=== PATIENT | female | born 2000 | race Caucasian/White ===

== ENCOUNTER → 2018-09-05 21:38 | Emergency (ER) | payer BC ==
[2018-09-05 21:48] VITALS: BP 119/89
--- OUTSIDE RECORDS SUMMARY | 2018-09-05 21:55 | XMS REPORT | Continuity of Care Document ---
:2000 External Reference #:[id number] Author Name Suzan Hernandez C.P.N.PJoseph Address [address] [facility] [place] [address] Care Team Providers Name Role Phone Suzan HernandezP.N.PJoseph Primary Care Physician Unavailable Payers Date Identification Numbers Payment Provider Subscriber Policy Number: [id number] BC/BS Of JOSSIE Cordell Shi PayID: [id number] [address] [address] [place] [address] Problems Active Problems Provider Date Abnormal glucose level Kyle ClaytonP.N.P. Onset: 09/02/2018 Autoimmune thyroiditis Suzan Hernandez C.P.N.PJoseph Onset: 09/02/2018 Family History Date Family Member(s) Observation Comments Father psoriasis Father Asthma Mother Migraine Mother Seasonal Allergies Mother ADHD First Brother Asthma First Brother ADHD Paternal Grandfather Hypothyroidism Paternal Grandfather Seasonal Allergies Paternal Grandmother BRCa - 1 breast cancer Paternal Grandmother Hypercholesterolemia Paternal Grandmother Mental Illness Maternal Grandfather Hypothyroidism Maternal Grandfather Seasonal Allergies Maternal Grandmother psoriasis Maternal Grandmother Seasonal Allergies Maternal Grandmother Cancer Maternal Grandmother Hypercholesterolemia Social History Type Date Description Comments Sex Unknown Lives With Mother And Father Lives With Younger Brother Smoke-Free Home is smoke-free Pets 2 dogs Pets 1 cat Tobacco Use Start: Unknown Patient has never smoked Guns in Home No Allergies, Adverse Reactions, Alerts Description No Known Drug Allergies Medications Active Medications SIG Qnty Indications Ordering Provider Date Escitalopram Oxalate 1 by mouth 30tabs F41.9 Suzan Hernandez, 09/27/2017 20mg every day C.P.N.P. Tablets Mirena (52 MG) Unknown 20mcg/24HR IUD History Medications Lexapro 1 by mouth every day 30tabs F41.9 Suzan Hernandez, 02/02/2017 - 10mg Tablets C.P.N.P. 09/27/2017 Lexapro 1 by mouth every day 60tabs Suzan Hernandez, 10/14/2016 - 5mg Tablets C.P.N.P. 02/02/2017 Selenium 1 by mouth every day 30tabs E06.3 Suzan Hernandez, 10/14/2016 - 200mcg C.P.N.P. 09/02/2018 Tablets Adrenal Stress Calm adrenotone - Designs E06.3 Suzan Hernandez, 2016 - for health C.P.N.P. 09/02/2018 Tablets [place] 3 500 1000 mg per day E06.3 Suzan Hernandez, 10/14/2016 - 500mg C.P.N.P. 09/02/2018 Capsules Turmeric 1 by mouth twice a Suzan Hernandez, 10/14/2016 - 500mg day on empty stomach C.P.N.P. 08/02/2017 Capsules (95% standardized extract) Amoxicillin 2 by mouth twice a 40caps R35.0 Suzan Hernandez, 05/01/2016 - 500mg day x 10 days C.P.N.P. 05/11/2016 Capsules Ferrous Bisglycinate 60 MG Per Day D53.9 Suzan Hernandez, 04/10/2016 - Chelate C.P.N.P. 09/02/2018 Powder Vitamin D3 Maximum 1 by mouth every day 90caps E55.9 Suzan Hernandez, 12/16 - Strength C.P.N.P. 09/02/2018 5000Unit Capsules Vitamin B Complex 1 by mouth every day 30tabs F41.9 Suzan Hernandez, 2015 - (100) C.P.N.P. 09/02/2018 Tablets No Active Suzan Hernandez, 05/31/2015 - Medications C.P.N.P. 12/17/2015 Immunizations CPT Code Status Date Vaccine Lot # [id number] Given 06/03/2016 HPV 9 Gardasil 9 [id number] 12566 Given 04/10/2016 HPV 9 Gardasil 9 [id number] 08473 Given 05/05/2014 Hepatitis A Vaccine Pediatric/Adolescent 2 Dose Schedule 31277 Given 06/21/2013 Hepatitis B Imm Age 0 to 19yr 62156 Given 04/20/2013 MMR Virus Immunization 95591 Given 03/23/2013 MMR Virus Immunization 70928 Given 02/23/2013 Hepatitis B Imm Age 0 to 19yr 01059 Given 12/22/2012 Hib/Hep B Combination Vaccine 36355 Given 12/02/2012 Poliomyelitis Immunization 95955 Given 10/27/2012 Poliomyelitis Immunization 09765 Given 12/04/2009 TdaP Immunization Age 7+ 16289 Given 04/15/2006 DTaP Immunization under age 7 39138 Given 1998 DTaP Immunization under age 7 86971 Given 1998 Hib Vaccine 73686 Given 1998 Poliomyelitis Immunization 03023 Given 1998 DTaP Immunization under age 7 26249 Given 1998 Hib Vaccine 57527 Given 1998 Poliomyelitis Immunization 37110 Given 1998 DTaP Immunization under age 7 34281 Given 1998 Hib Vaccine 05193 Refused 05/31/2015 HPV 4 Gardasil 4 Vital Signs Date Vital Result Comment 09/02/2018 8:38am Height 65.75 inches 5'5.75" Weight 147.50 lb Weight 66.906 kg Heart Rate 89 /min BP Systolic 119 mmHg BP Diastolic 71 mmHg BMI (Body Mass Index) 24.0 kg/m2 Right ear audiology results 20 db Left ear audiology results 20 db Left Visual Acuity Distance 20/20 Right Visual Acuity Distance 20/20 07/30/2017 9:15am Weight 143.50 lb Weight 65.092 kg Weight Percentile 75th Body Temperature 97.2 F 05/19/2017 9:25am Height 65 inches 5'5" Height Percentile 61 % Weight 137.12 lb Weight 62.200 kg Weight Percentile 68th Body Temperature 97.4 F Heart Rate 92 /min BP Systolic 105 mmHg BP Diastolic 68 mmHg Blood Pressure Percentile 28 % BMI (Body Mass Index) 22.8 kg/m2 Body Mass Index Percentile 64 % 02/02/2017 12:16pm Height 65.50 inches 5'5.50" Height Percentile 69 % Weight 133.50 lb Weight 60.556 kg Weight Percentile 64th Heart Rate 72 /min BP Systolic 102 mmHg BP Diastolic 62 mmHg Blood Pressure Percentile 17 % BMI (Body Mass Index) 21.9 kg/m2 Body Mass Index Percentile 55 % 10/14/2016 11:46am Height 65.25 inches 5'5.25" Height Percentile 65 % Weight 127.31 lb Weight 57.749 kg Weight Percentile 55th Heart Rate 102 /min BP Systolic 112 mmHg BP Diastolic 64 mmHg Blood Pressure Percentile 50 % BMI (Body Mass Index) 21.0 kg/m2 Body Mass Index Percentile 46 % 06/03/2016 9:02am Height 65.5 inches 5'5.50" Height Percentile 69 % Weight 128.81 lb Weight 58.429 kg Weight Percentile 59th Heart Rate 78 /min BP Systolic 98 mmHg manual BP Diastolic 64 mmHg manual Blood Pressure Percentile 8 % BMI (Body Mass Index) 21.1 kg/m2 Body Mass Index Percentile 48 % Right ear audiology results 20 db Left ear audiology results 20 db Left Visual Acuity Distance 20/20 Right Visual Acuity Distance 20/20 05/01/2016 4:36pm Weight 126.00 lb w/clothes/no shoes Weight 57.154 kg Weight Percentile 55th Body Temperature 98.2 F Heart Rate 110 /min BP Systolic 111 mmHg BP Diastolic 70 mmHg Blood Pressure Percentile 0 % 04/10/2016 9:02am Weight 125.25 lb Weight 56.813 kg Weight Percentile 53rd Heart Rate 102 /min BP Systolic 113 mmHg BP Diastolic 76 mmHg Blood Pressure Percentile 0 % 01/14/2016 9:14am Weight 125.12 lb Weight 56.757 kg Weight Percentile 54th Heart Rate 86 /min BP Systolic 117 mmHg BP Diastolic 55 mmHg Blood Pressure Percentile 0 % 12/17/2015 9:30am Weight 127.25 lb Weight 57.721 kg Weight Percentile 59th Heart Rate 80 /min BP Systolic 114 mmHg BP Diastolic 66 mmHg Blood Pressure Percentile 0 % 05/31/2015 9:08am Height 65.5 inches 5'5.50" Height Percentile 70 % Weight 128.00 lb Weight 58.061 kg Weight Percentile 62nd Heart Rate 68 /min BP Systolic 100 mmHg BP Diastolic 57 mmHg Blood Pressure Percentile 10 % BMI (Body Mass Index) 21.0 kg/m2 Body Mass Index Percentile 51 % Right ear audiology results 20 db Left ear audiology results 20 db Left Visual Acuity Distance 20/20 -2 Right Visual Acuity Distance 20/20 -2 Results Test Date Facility Test Result H/L Range Note Comp Metabolic Panel 09/02/2018 [facility] Sodium 136 mmol/L N 135-[address] [place] [address] [phone] Potassium 4.0 mmol/L N 3.5-5.0 Chloride 103 mmol/L N 101-111 Co2 Carbon Dioxide 25 mmol/L N 22-32 Anion Gap 8 mmol/L N 2-11 Glucose 287 mg/dL High 70-100 Blood Urea Nitrogen 14 mg/dL N 6-24 Creatinine 0.97 mg/dL High 0.51-0.95 BUN/Creatinine Ratio 14.4 N 8-20 Calcium 9.6 mg/dL N 8.6-10.3 Total Protein 7.2 g/dL N 6.4-8.9 Albumin 4.6 g/dL N 3.2-5.2 Globulin 2.6 g/dL N 2-4 Albumin/Globulin Ratio 1.8 N 1-3 Total Bilirubin 1.00 mg/dL N 0.2-1.0 Alkaline Phosphatase 95 U/L N 34-104 Alt 28 U/L N 7-52 Ast 21 U/L N 13-39 Egfr Non- 73.2 >60 Egfr 88.6 >60 1 CBC Auto Diff 09/02/2018 [facility] White Blood 8.3 10^3/uL N 3.5-10.[address] [place] [address] [phone] Red Blood Count 6.12 10^6/uL High 3.70-4.87 Hemoglobin 12.3 g/dL N 12.0-16.0 Hematocrit 39 % N 35-47 Mean Corpuscular Volume 63 fL Low 80-97 2 Mean Corpuscular Hemoglobin 20 pg Low 27-31 Mean Corpuscular HGB Conc 32 g/dL N 31-36 Red Cell Distribution Width 15 % N 10-15 Platelet Count 327 10^3/uL N 150-450 Mean Platelet Volume 7.3 fL Low 7.4-10.4 Abs Neutrophils 5.4 10^3/uL N 1.5-7.7 Abs Lymphocytes 2.2 10^3/uL N 1.0-4.8 Abs Monocytes 0.5 10^3/uL N 0-0.8 Abs Eosinophils 0.2 10^3/uL N 0-0.6 Abs Basophils 0.1 10^3/uL N 0-0.2 Abs Nucleated RBC 0.0 10^3/uL Granulocyte % 64.8 % Lymphocyte % 26.8 % Monocyte % 5.5 % Eosinophil % 2.2 % Basophil % 0.7 % Nucleated Red Blood Cells % 0.2 Laboratory test 09/02/2018 [facility] Hemoglobin A1c 7.4 % High 4.0-5.6 [address] (Glyco HGB) [place] [address] [phone] CRP High Sensitivity 1.30 mg/L <2.00 4 Cell Morphology 09/02/2018 [facility] Microcytosis 3+ [address] [place] [address] [phone] Hypochromasia 1+ Elliptocyte 1+ CBC Auto Diff 05/19/2017 [facility] White Blood 8.1 10^3/uL N 3.5-10.[address] [place] [address] [phone] Red Blood Count 5.82 10^6/uL High 4.0-5.4 Hemoglobin 11.9 g/dL Low 12.0-16.0 Hematocrit 38 % N 35-47 Mean Corpuscular Volume 65 fL Low 80-97 5 Mean Corpuscular Hemoglobin 20 pg Low 27-31 Mean Corpuscular HGB Conc 32 g/dL N 31-36 Red Cell Distribution Width 16 % High 10.5-15 Platelet Count 344 10^3/uL N 150-450 Mean Platelet Volume 7.1 um3 Low 7.4-10.4 Abs Neutrophils 4.6 10^3/uL N 1.5-7.7 Abs Lymphocytes 2.6 10^3/uL N 1.0-4.8 Abs Monocytes 0.5 10^3/uL N 0-0.8 Abs Eosinophils 0.3 10^3/uL N 0-0.6 Abs Basophils 0.1 10^3/uL N 0-0.2 Abs Nucleated RBC 0 10^3/uL Granulocyte % 57.0 % N 38-83 Lymphocyte % 31.9 % N 25-47 Monocyte % 6.5 % N 0-7 Eosinophil % 3.7 % N 0-6 Basophil % 0.9 % N 0-2 Nucleated Red Blood Cells % 0.1 Comp Metabolic Panel 05/19/2017 [facility] Sodium 138 mmol/L Low 139-[address] [place] [address] [phone] Potassium 4.0 mmol/L N 3.5-5.0 Chloride 104 mmol/L N 101-111 Co2 Carbon Dioxide 27 mmol/L N 22-32 Anion Gap 7 mmol/L N 2-11 Glucose 82 mg/dL N 70-100 Blood Urea Nitrogen 20 mg/dL N 6-24 Creatinine 0.83 mg/dL N 0.51-0.95 BUN/Creatinine Ratio 24.1 High 8-20 Calcium 9.1 mg/dL N 8.6-10.3 Total Protein 7.3 g/dL N 6.4-8.9 Albumin 4.6 g/dL N 3.2-5.2 Globulin 2.7 g/dL N 2-4 Albumin/Globulin Ratio 1.7 N 1-3 Total Bilirubin 0.50 mg/dL N 0.2-1.0 Alkaline Phosphatase 72 U/L N 34-104 Alt 13 U/L N 7-52 Ast 18 U/L N 13-39 Egfr Non- 89.5 >60 Egfr 115.1 >60 6 Laboratory test 05/19/2017 [facility] Thyroperoxidase AB 631.06 High <[address] IU/[place] [address] [phone] TSH (Thyroid Stim Horm) 3.03 mcIU/mL N 0.34-5.60 T3 Free 3.70 pg/mL N 2.5-3.9 Free T4 (Free Thyroxine) 0.81 ng/dL N 0.61-1.12 Ferritin 22.1 ng/mL N 11-307 Thyroglobulin AB 16 IU/mL Abnormal <4.0 7 Vitamin B6 05/19/2017 [facility] Pyridoxal 5-Phosphate 12 g/L 5-[address] [place] [address] [phone] Pyridoxic Acid 2 g/L Abnormal 3-30 9 Laboratory test 05/19/2017 [facility] Vitamin D 16.9 ng/mL Low 20-50 finding [address] Total 25(Oh) [place] [address] [phone] Vitamin B12 344 pg/mL N 180-914 10 Laboratory 01/20/2017 [facility] Thyroglobulin AB 10 IU/mL Abnormal <4.0 11 test finding [address] [place] [address] [phone] Laboratory 01/20/2017 [facility] Vitamin D Total 24.5 N 20-[address] 25(Oh) ng/[place] [address] [phone] TSH (Thyroid Stim Horm) 1.83 mcIU/mL N 0.34-5.60 Free T4 (Free Thyroxine) 0.79 ng/dL N 0.61-1.12 T3 Free 3.50 pg/mL N 2.5-3.9 Thyroperoxidase AB 568.04 IU/mL High <9 Iron & Iron Binding 01/20/2017 [facility] Iron 97 g/dL N 50- 212 [address] [place] [address] [phone] Unsaturated Iron Binding 257 g/dL Total Iron Binding Capacity 354 g/dL N 250-450 % Iron Saturation 27 % N 15-55 Laboratory test 01/20/2017 [facility] Ferritin 25.5 ng/mL N 11 -307 [address] [place] [address] [phone] CBC Auto Diff 01/20/2017 [facility] White Blood 7.9 10^3/uL N 3.5-10.8 [address] [place] [address] [phone] Red Blood Count 5.82 10^6/uL High 4.0-5.4 Hemoglobin 11.8 g/dL Low 12.0-16.0 Hematocrit 38 % N 35-47 Mean Corpuscular Volume 65 fL Low 80-97 12 Mean Corpuscular Hemoglobin 20 pg Low 27-31 Mean Corpuscular HGB Conc 31 g/dL N 31-36 Red Cell Distribution Width 15 % N 10.5-15 Platelet Count 339 10^3/uL N 150-450 Mean Platelet Volume 8 um3 N 7.4-10.4 Abs Neutrophils 4.5 10^3/uL N 1.5-7.7 Abs Lymphocytes 2.6 10^3/uL N 1.0-4.8 Abs Monocytes 0.6 10^3/uL N 0-0.8 Abs Eosinophils 0.2 10^3/uL N 0-0.6 Abs Basophils 0.1 10^3/uL N 0-0.2 Abs Nucleated RBC 0.01 10^3/uL Granulocyte % 57.3 % N 38-83 Lymphocyte % 32.4 % N 25-47 Monocyte % 7.2 % N 1-9 Eosinophil % 2.2 % N 0-6 Basophil % 0.9 % N 0-2 Nucleated Red Blood Cells % 0.1 CBC Auto Diff 09/03/2016 [facility] White Blood 9.6 10^3/uL N 3.5-10.[address] Count [place] [id number] [phone] Red Blood Count 5.88 10^6/uL High 4.0-5.4 Hemoglobin 12.2 g/dL N 12.0-16.0 Hematocrit 38 % N 35-47 Mean Corpuscular Volume 65 fL Low 80-97 13 Mean Corpuscular Hemoglobin 21 pg Low 27-31 Mean Corpuscular HGB Conc 32 g/dL N 31-36 Red Cell Distribution Width 16 % High 10.5-15 Platelet Count 327 10^3/uL N 150-450 Mean Platelet Volume 7 um3 Low 7.4-10.4 Abs Neutrophils 5.9 10^3/uL N 1.5-7.7 Abs Lymphocytes 2.8 10^3/uL N 1.0-4.8 Abs Monocytes 0.7 10^3/uL N 0-0.8 Abs Eosinophils 0.1 10^3/uL N 0-0.6 Abs Basophils 0 10^3/uL N 0-0.2 Abs Nucleated RBC 0.01 10^3/uL N Granulocyte % 62.0 % N 38-83 Lymphocyte % 29.0 % N 25-47 Monocyte % 7.0 % N 1-9 Eosinophil % 1.5 % N 0-6 Basophil % 0.5 % N 0-2 Nucleated Red Blood Cells % 0.1 N Laboratory test 09/03/2016 [facility] Ferritin 18.9 ng/mL N 11 -[address] [place] [address] [phone] Iron & Iron Binding 09/03/2016 [facility] Iron 124 g/dL N 50 -[address] [place] [address] [phone] Unsaturated Iron Binding 234 g/dL N Total Iron Binding Capacity 358 g/dL N 250-450 % Iron Saturation 35 % N 15-55 Laboratory test 09/03/2016 [facility] Vitamin D Total 26.4 ng/ mL Low 30-[address] 25(Oh) [place] [address] [phone] Vitamin B6 09/03/2016 [facility] Pyridoxal 9 g/L N 5-50 14 5-[place] [address] [phone] Pyridoxic Acid 3 g/L N 3-30 15 Laboratory test 09/03/2016 [facility] TSH (Thyroid 1.37 mcIU/mL N 0.34-5.60 finding [address] Stim Horm) [place] [address] [phone] Free T4 (Free Thyroxine) 0.86 ng/dL N 0.61-1.12 T3 Free 3.70 pg/mL N 2.5-3.9 Thyroperoxidase AB 417.23 IU/mL High <9 Lyme Western 09/03/2016 [facility] Lyme Disease Negative N Negative [place] [address] [phone] Lyme Disease IgG Bands Present No bands detecte <SEE NOTE> kDa N 16 Lyme Disease IgM Ab WB Negative N Negative Lyme Disease IgM Bands Present No bands detecte <SEE NOTE> kDa N 17 Lyme Disease Interpretation See Comment N 18 Laboratory 09/03/2016 [facility] Thyroglobulin AB 6.3 IU/mL Abnormal <4.[address] [place] [address] [phone] Laboratory 05/19/2016 [facility] House [facility] .Urine Culture <100k test finding (607)- - In House negative Laboratory 05/01/2016 [facility] .Urine Culture >100k col, test finding (607)- - In House pos Laboratory 05/01/2016 [facility] Urine Culture SEE RESULT 20 test finding [address] [place] [address] Sensitivities [phone] Vitamin B6 03/13/2016 [facility] Pyridoxal 11 g/L N 5-[address] 5[place] [address] [phone] Pyridoxic Acid 3 g/L N 3-30 22 Laboratory test 03/13/2016 [facility] Vitamin D 26.4 ng/mL Low 30-[address] Total 25(Oh) [place], [place] [id number] [phone] CBC Auto Diff 03/13/2016 [facility] White Blood 11.8 High 3.5- 10.[address] Count 10^3/[place] [address] [phone] Red Blood Count 6.01 10^6/uL High 4.0-5.4 Hemoglobin 12.0 g/dL N 12.0-16.0 Hematocrit 38 % N 35-47 Mean Corpuscular Volume 63 fL Low 80-97 Mean Corpuscular Hemoglobin 20 pg Low 27-31 Mean Corpuscular HGB Conc 31 g/dL N 31-36 Red Cell Distribution Width 15 % N 10.5-15 Platelet Count 324 10^3/uL N 150-450 Mean Platelet Volume 8 um3 N 7.4-10.4 Abs Neutrophils 7.2 10^3/uL N 1.5-7.7 Abs Lymphocytes 3.4 10^3/uL N 1.0-4.8 Abs Monocytes 0.9 10^3/uL High 0-0.8 Abs Eosinophils 0.2 10^3/uL N 0-0.6 Abs Basophils 0.1 10^3/uL N 0-0.2 Abs Nucleated RBC 0.01 10^3/uL N Granulocyte % 60.7 % N 38-83 Lymphocyte % 29.2 % N 25-47 Monocyte % 7.9 % N 1-9 Eosinophil % 1.7 % N 0-6 Basophil % 0.5 % N 0-2 Nucleated Red Blood Cells % 0.1 N Iron & Iron Binding 03/13/2016 [facility] Iron 141 g/dL N 50 -[address] [place] [address] [phone] Unsaturated Iron Binding 202 g/dL N Total Iron Binding Capacity 343 g/dL N 250-450 % Iron Saturation 41 % N 15-55 Laboratory test 03/13/2016 [facility] Ferritin 14.5 ng/mL N 11 -[address] [place] [address] [phone] Laboratory test 11/25/2015 [facility] Reference Lab See Comment N [address] [place] [address] [phone] Hemoglobin 11/25/2015 [facility] Hemoglobin A2 See Comment N Electropheresis [address] [place] [address] [phone] Hemoglobin F See Comment N Hemoglobin A See Comment N Variant Hemoglobin See Comment N Hemoglobin Variant 2 See Comment N Hemoglobin Variant 3 See Comment N Hemoglobin Electro Interp TNP N () 24 Laboratory test 11/25/2015 [facility] Reference Lab See Comment N [address] [place] [address] [phone] Hemoglobin 11/25/2015 [facility] Hemoglobin TNP N () [address] [place] [address] Interp [phone] Laboratory test 11/25/2015 [facility] Lyme Disease Negative N Negative [address] [place] [address] [phone] CBC Auto Diff 11/12/2015 [facility] White Blood 9.4 10^3/uL N 3.5-10.[address] Count [place], [place] [address] [phone] Red Blood Count 5.70 10^6/uL High 4.0-5.4 Hemoglobin 11.5 g/dL Low 12.0-16.0 Hematocrit 36 % N 35-47 Mean Corpuscular Volume 64 fL Low 80-97 28 Mean Corpuscular Hemoglobin 20 pg Low 27-31 Mean Corpuscular HGB Conc 32 g/dL N 31-36 Red Cell Distribution Width 15 % N 10.5-15 Platelet Count 350 10^3/uL N 150-450 Mean Platelet Volume 7 um3 Low 7.4-10.4 Abs Neutrophils 5.7 10^3/uL N 1.5-7.7 Abs Lymphocytes 2.9 10^3/uL N 1.0-4.8 Abs Monocytes 0.6 10^3/uL N 0-0.8 Abs Eosinophils 0.1 10^3/uL N 0-0.6 Abs Basophils 0.1 10^3/uL N 0-0.2 Abs Nucleated RBC 0.01 10^3/uL N Granulocyte % 61.1 % N 38-83 Lymphocyte % 31.0 % N 25-47 Monocyte % 6.0 % N 1-9 Eosinophil % 1.2 % N 0-6 Basophil % 0.7 % N 0-2 Nucleated Red Blood Cells % 0.1 N Comp Metabolic Panel 11/12/2015 [facility] Sodium 137 mmol/L N 133-[address] [place] [address] [phone] Potassium 4.2 mmol/L N 3.5-5.0 Chloride 103 mmol/L N 101-111 Co2 Carbon Dioxide 26 mmol/L N 22-32 Anion Gap 8 mmol/L N 2-11 Glucose 76 mg/dL N 70-100 Blood Urea Nitrogen 22 mg/dL N 6-24 Creatinine 0.84 mg/dL N 0.51-0.95 BUN/Creatinine Ratio 26.2 High 8-20 Calcium 9.6 mg/dL N 8.6-10.3 Total Protein 7.7 g/dL N 6.4-8.9 Albumin 4.7 g/dL N 3.2-5.2 Globulin 3.0 g/dL N 2-4 Albumin/Globulin Ratio 1.6 N 1-3 Total Bilirubin 0.60 mg/dL N 0.2-1.0 Alkaline Phosphatase 79 U/L N 34-104 Alt 11 U/L N 7-52 Ast 23 U/L N 13-39 Laboratory test 11/12/2015 [facility] Ferritin 18.5 ng/mL N 11 -[address] [place] [address] [phone] Lipid Profile 11/12/2015 [facility] Triglycerides 78 mg/dL N 29 (Trig/Chol/HDL) [address] [place] [address] [phone] Cholesterol 160 mg/dL N 30 HDL Cholesterol 66.6 mg/dL N 31 LDL Cholesterol 78 mg/dL N 32 Laboratory test 11/12/2015 [facility] RBC Magnesium 3.8 mg/dL N 3.5-7.1 [address] [place] [address] [phone] TSH (Thyroid Stim Horm) 1.60 mcIU/mL N 0.34-5.60 Vitamin B12 577 pg/mL N 180-914 34 Vitamin B6 11/12/2015 [facility] Pyridoxal 5-Phosphate 15 g/L N 5-[address] [place] [address] [phone] Pyridoxic Acid 5 g/L N 3-30 36 Laboratory test 11/12/2015 [facility] Vitamin D 24.3 ng/mL Low 30-50 finding [address] [facility] Total 25(Oh) [place] [address] [phone] Zinc Serum 0.74 g/mL N 0.66-1.10 37 CRP High Sensitivity 0.49 mg/L N 38 Arthritis Panel 11/12/2015 [facility] Uric Acid 3.6 mg/dL N 2.3-6.6 [address] [place] [address] [phone] Erythrocyte Sed Rate 10 mm/Hr N 0-14 Rheumatoid Factor <15 IU/mL N <15 39 Anti-Nuclear Antibody 0.2 U N 40 Cyclic Citrullinated Peptide <15.6 U N 41 Interpretation See Comment N 42 Laboratory test 11/12/2015 [facility] Zinc Serum 0.74 g/mL N 0.66-1.10 43 finding [address] [place] [address] [phone] RBC Magnesium Sent To [place] 3.8 mg/dL N 3.5-7.1 44 Vitamin B6 11/12/2015 [facility] Pyridoxal 5-Phosphate 15 g/L N 5-50 45 [address] [place] [address] [phone] Pyridoxic Acid 5 g/L N 3-30 46 Laboratory test 11/12/2015 [facility] Lyme Disease Negative N Negative 47 finding [address] [facility] [place] [address] [phone] 1 Because ethnic data is not always readily available, this report includes an eGFR for both -Americans and non- Americans. The National Kidney Disease Education Program (NKDEP) does not endorse the use of the MDRD equation for patients that are not between the ages of 18 and 70, are , have extremes of body size, muscle mass, or nutritional status, or are non- or non-. According to the National Kidney Foundation, irrespective of diagnosis, the stage of the disease is based on the level of kidney function: Stage Description GFR(mL/min/1.73 m(2)) 1 Kidney damage with normal or decreased GFR 90 2 Kidney damage with mild decrease in GFR 60-89 3 Moderate decrease in GFR 30-59 4 Severe decrease in GFR 15-29 5 Kidney failure <15 (or dialysis) 2 Consistent with Previous Results Reported on 05/19/2017 3 Therapeutic target for the treatment of diabetes mellitus patients is <7% HBA1C, and in selective patients <6.0%. Please refer to [place] [employer] diabetic care guidelines for further information. 4 please run immediately - 4+ urinary glucose in office 5 Consistent with Previous Results Reported on 01/20/17 6 Because ethnic data is not always readily available, this report includes an eGFR for both -Americans and non- Americans. The National Kidney Disease Education Program (NKDEP) does not endorse the use of the MDRD equation for patients that are not between the ages of 18 and 70, are , have extremes of body size, muscle mass, or nutritional status, or are non- or non-. According to the National Kidney Foundation, irrespective of diagnosis, the stage of the disease is based on the level of kidney function: Stage Description GFR(mL/min/1.73 m(2)) 1 Kidney damage with normal or decreased GFR 90 2 Kidney damage with mild decrease in GFR 60-89 3 Moderate decrease in GFR 30-59 4 Severe decrease in GFR 15-29 5 Kidney failure <15 (or dialysis) 7 ADDITIONAL INFORMATION The thyroglobulin antibody testing method is an immunoenzymatic assay manufactured by [employer] and performed on the [employer] [id number] 800. Values obtained from different assay methods or kits may be different and cannot be used interchangeably. The results cannot be interpreted as absolute evidence for the presence or absence of malignant disease. Test Performed by: [facility] [facility] [address] [place] [address] 8 ADDITIONAL INFORMATION This test was developed and its performance characteristics determined by [facility] in a manner consistent with CLIA requirements. This test has not been cleared or approved by the U.S. Food and Drug Administration. 9 ADDITIONAL INFORMATION This test was developed and its performance characteristics determined by [facility] in a manner consistent with CLIA requirements. This test has not been cleared or approved by the U.S. Food and Drug Administration. Test Performed by: [facility] [place] [address] 10 Normal Range 180 to 914 Indeterminate Range 145 to 180 Deficient Range <145 11 ADDITIONAL INFORMATION The thyroglobulin antibody testing method is an immunoenzymatic assay manufactured by [employer]. and performed on the Glythera DXI 800. Values obtained from different assay methods or kits may be different and cannot be used interchangeably. The results cannot be interpreted as absolute evidence for the presence or absence of malignant disease. Test Performed by: [facility] [place] [address] 12 Consistent with previous results on 09/03/16. 13 Consistent with previous results on 03/13/16. 14 ADDITIONAL INFORMATION This test was developed and its performance characteristics determined by [facility] in a manner consistent with CLIA requirements. This test has not been cleared or approved by the U.S. Food and Drug Administration. 15 ADDITIONAL INFORMATION This test was developed and its performance characteristics determined by [facility] in a manner consistent with CLIA requirements. This test has not been cleared or approved by the U.S. Food and Drug Administration. Test Performed by: [facility] - [address] [address] 16 No bands detected 17 No bands detected 18 Specific serologic response to B. burgdorferi infection is not detected, but cannot rule out early infection during which low or undetectable antibody levels to B. burgdorferi may be present. If clinically indicated, a new serum specimen should be submitted in 7-14 days. ADDITIONAL INFORMATION CDC criteria require >=5 bands for IgG or >=2 bands for IgM for the Immunoblot to be considered positive. Bands (e.g.,p41) may be detected in patients without Lyme disease, and patterns not meeting the CDC criteria should be interpreted with caution. Immunoblot should be ordered only on specimens that are positive or equivocal by a FDA-licensed Lyme disease antibody screening test (e.g., EIA). Test Performed by: [facility] - [address] [address] 19 ADDITIONAL INFORMATION The thyroglobulin antibody testing method is an immunoenzymatic assay manufactured by [employer]. and performed on the Glythera DXI 800. Values obtained from different assay methods or kits may be different and cannot be used interchangeably. The results cannot be interpreted as absolute evidence for the presence or absence of malignant disease. Test Performed by: [facility] - [address] [address] 20 SEE RESULT BELOW Name: DINORAH SHI : [address]: James Moser III Acct: [id number] Unit: [id number] AGE: 15 Location: [facility] Re05/02/16 SEX: F Status: REG REF SPEC: [id number] YARELIS: 05/01/16-[address] [facility] [address]: James Moser III, MD REQ: [id number] RECD: 05/02/16-1214 STATUS: COMP _ SOURCE: URINE SPDESC: ORDERED: Urine Culture Procedure Result Reported Site Urine Culture Final 05/04/16- 0759 ML Organism 1 ESCHERICHIA COLI [place] Count Not Performed on Uricult Specimens CFU/ML 1. ESCHERICHIA COLI M.I.C. RX --------- ------ Ampicillin <=2 S Cefazolin <=4 S Cefepime <=1 S Ceftriaxone <=1 S Ciprofloxacin <=0.25 S Gentamicin <=1 S Levofloxacin <=0.12 S Meropenem <=0.25 S Nitrofurantoin <=16 S Tetracycline <=1 S Pipercillin/Tazobactam <=4 S Trimethoprim/Sulfamethoxazole <=20 S Amoxicillin/Clavulanic Acid <=2 S Aztreonam <=1 S Contact the Microbiology Department for any additional antibiotic reporting. * ML - MAIN LAB ([facility]) . END OF REPORT * ML=Testing performed at Main Lab DEPARTMENT OF PATHOLOGY, [address] [place] [address] Ruben Genao M.D. Director [facility] # [id number] 21 ADDITIONAL INFORMATION This test was developed and its performance characteristics determined by [facility] in a manner consistent with CLIA requirements. This test has not been cleared or approved by the U.S. Food and Drug Administration. 22 ADDITIONAL INFORMATION This test was developed and its performance characteristics determined by [facility] in a manner consistent with CLIA requirements. This test has not been cleared or approved by the U.S. Food and Drug Administration. Test Performed by: [facility] - [address] [address] [employer]: Zak Younger II, M.D., Ph.D. 23 Test Result Flag Unit RefValue Thalassemia and Hemoglobinopathy Ev Hemoglobinopath See Comment y Interpretation Reviewed by Lance Lebron M.D. There is an alpha hemoglobin variant present that is a good match for Hb J-Meerut. In addition, the Hb A2 + Hb A2/J-Meerut hybrid was elevated. Molecular evaluation was performed. MOLECULAR RESULTS: The following alterations were detected: Gene: HBA2 DNA change: codon 120, GCG>GAG, heterozygous Protein change: p.Umi374Yss (p.A120E) HGVS: c.362C>A, p.A121E Classification: Hb J-Meerut Gene: HBB DNA change: codon 39, CAG>TAG, heterozygous Protein change: p.Gln39X HGVS: c.118C>T, p.Q40X Classification: Beta Zero Thalassemia No sequence alterations were detected in the following: Alpha-1 Globin Gene (HBA1) No deletions or duplications were detected in the following: Alpha Globin Gene Cluster INTERPRETATION: 1) These results confirm beta thalassemia trait as well as heterozygous Hb J-Meerut. In heterozygous individuals, the HBB c.118C>T beta zero thalassemia mutation is generally associated with mild to moderate anemia (HGB: 8.5-11.3 g/dL), microcytosis (MCV: 60-72 fL), and moderately elevated Hb A2 and Hb F levels. Hb J-Meerut is a harmless, stable alpha globin variant that has not been observed to modify the severity of a co-inherited beta thalassemia (a). However, the presence of Hb J-Meerut has been reported to complicate a diagnosis of beta thalassemia trait based on electrophoresis because the formation of Hb J-Meerut/delta chain hybrids reduce the amount of Hb A2 on electrophoresis into the normal range (a). Of note, Hb J-Meerut is typically found on the alpha-1 globin gene (HBA1). However, in the current patient, DNA sequencing detected the Hb J-Meerut variant on the HBA2 gene, which has also been reported (b). This location of the Hb J-Meerut variant in either alpha globin gene carries no clinical significance other than altering the amount of the variant present. Clinical correlation is necessary. a) Haematologica. 2005;91(12 Suppl):ECR56 (PMID 08580134) b) Br J Haematol. 1993;88(2):300-6 (PMID 0582373) 2) No large deletions or duplications were detected in the alpha globin gene cluster. 3) Ferritin is borderline low-normal, indicating a risk for iron deficiency, a common cause of microcytic anemia. Correlation with iron studies is recommended. METHOD: Bi-directional sequence analysis was performed to test for the presence of a mutation in all coding regions and non-coding portions of the alpha-1 hemoglobin (HBA1), alpha-2 hemoglobin (HBA2), and beta hemoglobin (HBB) genes with reported mutations. HGVS mutation nomenclature is based on human assembly GRCh37 (hg19) and RefSeq accession numbers [id number] (HBA1), [id number] (HBA2), and [id number] (HBB). Dosage analysis (PCR and MLPA) was used to detect deletion-type mutations, the Hb Constant Spring, and alphaT [place] point mutations within the alpha globin gene cluster. This method uses multiple probes that hybridize throughout the alpha-gene locus on chromosome 16 from the HS-40 regulatory region through the 3' hypervariable region (3'HVR). Molecular genetic interpretation seen in consultation with Shai Arias M.D. Hemoglobin A2 3.3 % 2.0-3.3 Hemoglobin F 0.0 % 0.0-0.9 Hemoglobin A 63.8 L % 95.8-98.0 Variant 31.4=Hb J-Meerut % REFERENCE VALUE No abnormal variants Variant 2 See Comment % RESULT: 1.5=Hb A2/J-Meerut Hybrid REFERENCE VALUE No abnormal variants Ferritin, S 12 mcg/L 11 - 307 Test Performed by: [address] [address] [employer]: Zak Younger II, M.D., Ph.D. 24 Cancelled due to duplicate test on this order 25 Test Result Flag Unit RefValue Thalassemia and Hemoglobinopathy Ev Hemoglobinopath See Comment y Interpretation Reviewed by Lance Lebron M.D. There is an alpha hemoglobin variant present that is a good match for Hb J-Meerut. In addition, the Hb A2 + Hb A2/J-Meerut hybrid was elevated. Molecular evaluation was performed. MOLECULAR RESULTS: The following alterations were detected: Gene: HBA2 DNA change: codon 120, GCG>GAG, heterozygous Protein change: p.Agj260Eod (p.A120E) HGVS: c.362C>A, p.A121E Classification: Hb J-Meerut Gene: HBB DNA change: codon 39, CAG>TAG, heterozygous Protein change: p.Gln39X HGVS: c.118C>T, p.Q40X Classification: Beta Zero Thalassemia No sequence alterations were detected in the following: Alpha-1 Globin Gene (HBA1) No deletions or duplications were detected in the following: Alpha Globin Gene Cluster INTERPRETATION: 1) These results confirm beta thalassemia trait as well as heterozygous Hb J-Meerut. In heterozygous individuals, the HBB c.118C>T beta zero thalassemia mutation is generally associated with mild to moderate anemia (HGB: 8.5-11.3 g/dL), microcytosis (MCV: 60-72 fL), and moderately elevated Hb A2 and Hb F levels. Hb J-Meerut is a harmless, stable alpha globin variant that has not been observed to modify the severity of a co-inherited beta thalassemia (a). However, the presence of Hb J-Meerut has been reported to complicate a diagnosis of beta thalassemia trait based on electrophoresis because the formation of Hb J-Meerut/delta chain hybrids reduce the amount of Hb A2 on electrophoresis into the normal range (a). Of note, Hb J-Meerut is typically found on the alpha-1 globin gene (HBA1). However, in the current patient, DNA sequencing detected the Hb J-Meerut variant on the HBA2 gene, which has also been reported (b). This location of the Hb J-Meerut variant in either alpha globin gene carries no clinical significance other than altering the amount of the variant present. Clinical correlation is necessary. a) Haematologica. 2006 Jan;91(12 Suppl):ECR56 (PMID [id number]) b) Br J Haematol. 1993;88(2):300-6 (PMID [id number]) 2) No large deletions or duplications were detected in the alpha globin gene cluster. 3) Ferritin is borderline low-normal, indicating a risk for iron deficiency, a common cause of microcytic anemia. Correlation with iron studies is recommended. METHOD: Bi-directional sequence analysis was performed to test for the presence of a mutation in all coding regions and non-coding portions of the alpha-1 hemoglobin (HBA1), alpha-2 hemoglobin (HBA2), and beta hemoglobin (HBB) genes with reported mutations. HGVS mutation nomenclature is based on human assembly GRCh37 (hg19) and RefSeq accession numbers [id number] (HBA1), [id number] (HBA2), and [id number] (HBB). Dosage analysis (PCR and MLPA) was used to detect deletion-type mutations, the Hb Constant Spring, and alphaT [place] point mutations within the alpha globin gene cluster. This method uses multiple probes that hybridize throughout the alpha-gene locus on chromosome 16 from the HS-40 regulatory region through the 3' hypervariable region (3'HVR). Molecular genetic interpretation seen in consultation with Shai Arias M.D. Hemoglobin A2 3.3 % 2.0-3.3 Hemoglobin F 0.0 % 0.0-0.9 Hemoglobin A 63.8 L % 95.8-98.0 Variant 31.4=Hb J-Meerut % REFERENCE VALUE No abnormal variants Variant 2 See Comment % RESULT: 1.5=Hb A2/J-Meerut Hybrid REFERENCE VALUE No abnormal variants Ferritin, S 12 mcg/L 11 - 307 Test Performed by: [place] [address] [employer]ice: Zak Younger II, M.D., Ph.D. 26 Cancelled due to duplicate test on this order 27 Serologic response to B. burgdorferi infection is not detected, but cannot rule out early infection during which low or undetectable antibody levels to B. burgdorferi may be present. If clinically indicated, a new serum specimen should be submitted in 7-14 days. Test Performed by: [facility] [place] [address] [employer]ice: Zak Younger II, M.D., Ph.D. 28 Consistent with previous results on 02-11-15. 29 Desirable <90 Borderline high 90-129 High >129 30 Desirable <170 Borderline high 170-199 High >199 31 Low <40 Borderline low 40-59 Desirable >59 32 Desirable: <110 mg/dL Borderline high: 110-129 mg/dL High: >129 mg/dL 33 Test Performed by: [facility]. [address] [place] [id number] 34 Normal Range 180 to 914 Indeterminate Range 145 to 180 Deficient Range <145 35 ADDITIONAL INFORMATION This test was developed and its performance characteristics determined by [facility] in a manner consistent with CLIA requirements. This test has not been cleared or approved by the U.S. Food and Drug Administration. 36 ADDITIONAL INFORMATION This test was developed and its performance characteristics determined by [facility] in a manner consistent with CLIA requirements. This test has not been cleared or approved by the U.S. Food and Drug Administration. Test Performed by: [facility] [place] [address] [employer]ice: Zak Younger II, M.D., Ph.D. 37 ADDITIONAL INFORMATION This test was developed and its performance characteristics determined by [facility] in a manner consistent with CLIA requirements. This test has not been cleared or approved by the U.S. Food and Drug Administration. Test Performed by: [facility] [place] [address] [employer]ice: Zak Younger II, M.D., Ph.D. 38 Low risk: <1.00 Average risk: 1.00-3.00 High risk: >3.00 39 Test Performed by: [facility] [place] [address] [employer]ice: Zak Younger II, M.D., Ph.D. 40 REFERENCE VALUE <=1.0 (Negative) 41 REFERENCE VALUE <20.0 (Negative) 42 Tests for antibodies to dsDNA and MAHSA antigens are not performed automatically unless the DIMAS result is > or= 3.0 U. Studies performed at [facility] indicate that positive DIMAS results <3.0 U are rarely accompanied by positive second order tests. Test Performed by: [facility] [place] [address] [employer]ice: Zak Younger II, M.D., Ph.D. 43 ADDITIONAL INFORMATION This test was developed and its performance characteristics determined by [facility] in a manner consistent with CLIA requirements. This test has not been cleared or approved by the U.S. Food and Drug Administration. Test Performed by: [facility] [place] [address] [employer]ice: Zak Younger II, M.D., Ph.D. 44 Test Performed by: [facility]. [address] [place] [address], [place] [address] 45 ADDITIONAL INFORMATION This test was developed and its performance characteristics determined by [facility] in a manner consistent with CLIA requirements. This test has not been cleared or approved by the U.S. Food and Drug Administration. 46 ADDITIONAL INFORMATION This test was developed and its performance characteristics determined by [facility] in a manner consistent with CLIA requirements. This test has not been cleared or approved by the U.S. Food and Drug Administration. Test Performed by: [facility] - [address] [address] [employer]ice: Zak Younger II, M.D., Ph.D. 47 Serologic response to B. burgdorferi infection is not detected, but cannot rule out early infection during which low or undetectable antibody levels to B. burgdorferi may be present. If clinically indicated, a new serum specimen should be submitted in 7-14 days. Test Performed by: [facility] - [address] [address] [employer]: Zak Younger II, M.D., Ph.D. Encounters Type Date Location Provider Dx Diagnosis Office Visit 09/02/2018 Main Office Suzan Hernandez, Z00.8 Encounter for other 8:45a C.P.N.P. general examination R73.09 Other abnormal glucose E06.3 Autoimmune thyroiditis F41.9 Anxiety disorder, unspecified G47.9 Sleep disorder, unspecified Office Visit 07/30/2017 9:15a Main Office Suzan Hernandez, E06.3 Autoimmune C.P.N.P. thyroiditis R00.0 Tachycardia, unspecified F41.9 Anxiety disorder, unspecified J06.9 Acute upper respiratory infection, unspecified Office Visit 05/19/2017 9:00a [facility] Office Suzan Hernandez, E06.3 Autoimmune C.P.N.P. thyroiditis E55.9 Vitamin D deficiency, unspecified F41.9 Anxiety disorder, unspecified Office Visit 02/02/2017 12:15p Main Office Suzan Hernandez, E06.3 Autoimmune C.P.N.P. thyroiditis Office Visit 10/14/2016 11:45a Main Office Suzan Hernandez, E06.3 Autoimmune C.P.N.P. thyroiditis Office Visit 06/03/2016 8:45a Main Office Suzan Hernandez, Z00.8 Encounter for other C.P.N.P. general examination R79.0 Abnormal level of blood mineral E55.9 Vitamin D deficiency, unspecified G47.9 Sleep disorder, unspecified F41.9 Anxiety disorder, unspecified Z00.129 Encntr for routine child health exam w/o abnormal findings Office Visit 05/19/2016 4:12p Main Office Suzan Hernandez R35.0 Frequency of C.P.N.P. micturition Office Visit 05/01/2016 4:30p Main Office Suzan Hernandez R35.0 Frequency of C.P.N.P. micturition Office Visit 04/10/2016 9:00a Main Office Suzan Hernandez, D53.9 Nutritional anemia, C.P.N.P. unspecified Office Visit 01/14/2016 9:15a Main Office Suzan Hernandez D53.9 Nutritional anemia, C.P.N.P. unspecified Office Visit 12/17/2015 9:30a Main Office Suzan Hernandez F41.9 Anxiety disorder, C.P.N.P. unspecified G47.9 Sleep disorder, unspecified E55.9 Vitamin D deficiency, unspecified R79.0 Abnormal level of blood mineral Office Visit 05/31/2015 9:00a Main Office Suzan Hernandez, Z00.121 Encounter for C.P.N.P. routine child health exam w abnormal findings N94.6 Dysmenorrhea, unspecified F41.9 Anxiety disorder, unspecified M25.579 Pain in unspecified ankle and joints of unspecified foot M25.539 Pain in unspecified wrist G47.9 Sleep disorder, unspecified Z13.89 Encounter for screening for other disorder Plan of Treatment 09/02/2018 - Richard Clayton.P.N.P.Z00.8 Encounter for other general examinationComments:check insurance for Hepatitis A and HPV vaccinationFollow up :1 year well eqsnbJ15.09 Other abnormal glucoseComments:consulted with Dr. Valentin - advises to sip on pedialyte over the weekend, increase fats, some protein, vegetables. Avoid all sugar and simple carbohydrates. Refer to Dr. Harrington (office is closed today) on Wednesday Any change in mental status, increase thirst / urination - seek medical care.Referral:Uche Harrington M.D., KlkhywodhnbrsO06.3 Autoimmune acmkvgcupygC13.9 Anxiety disorder, khrmvdujgojD14.9 Sleep disorder, unspecifiedComments:Turn off electronics 2 hours prior to bed, dim lightsGet outdoors during daylight hours (morning /early afternoon is ideal)Low sugar/ processed foods (blood sugar spikes can interfere with sleep as it stimulates stress hormones to be produced)Exercise daily write down your thoughts before bed
== END | disposition left against medical advice (07) ==
LOC: ED 21:38
DX: Z53.21 Procedure and treatment not carried out due to patient leaving prior to being seen by health care provider (principal)
CPT/HCPCS: 99282